=== PATIENT | female | born 1975 | race Caucasian/White ===

== ENCOUNTER 2017-02-17 12:29 | Emergency (ER) | payer OTHER ==
[~2017-02-17] VITALS: Ht 170.2 cm; Wt 80.7 kg
[~2017-02-17 12:29] MED LIST: BACTRIM DS TAB1 EACH PO; CIPROFLOXACIN500 M1 PO; NORCO 5-325 TA1 EACH PO; TAMSULOSIN HCL0.4 M1 PO
[2017-02-17] MEDS ORDERED: AMOXICILLIN 50500 MG PO (13:38)
[2017-02-17 14:13] LABS: ABSOLUTE NEUTROPHILS 9.1 thou/uL (1.4-8.2); BASOPHILS 0.3 % (0.0-2.0); EOSINOPHILS 1.3 % (0.0-3.0); HEMATOCRIT 40.7 % (37.0-47.0); HEMOGLOBIN 13.7 gm/dL (12.0-15.0); LYMPHOCYTES 12.2 % (24.0-44.0); MCH 28.3 pg (26.0-34.0); MCHC 33.7 g/dL (28.0-37.0); MCV 84.1 fL (80.0-100.0); MONOCYTES 9.6 % (1.0-8.0); PLATELET COUNT 314 thou/uL (150-400); POLYS 76.6 % (36.0-66.0); RBC 4.84 mil/uL (4.20-5.00); RDW 13.7 % (10.5-14.5); WBC 11.9 thou/uL (4.0-11.0)
[2017-02-17 14:15] LABS: MANUAL DIFF NO
[2017-02-17 14:18] LABS: CALCIUM 9.1 mg/dL (8.5-10.1); CREATININE 0.8 mg/dL (0.6-1.0); POTASSIUM 3.4 mmol/L (3.5-5.1)
[2017-02-17 19:34] VITALS: BP 135/78
== END 2017-02-17 19:44 | disposition short-term general hospital (02) ==
LOC: ER 12:29
PROVIDERS: Emergency Medicine
DX: M27.2 Inflammatory conditions of jaws (principal); G43.909 Migraine, unspecified, not intractable, without status migrainosus